=== PATIENT | female | born 1950 | race Two or more races ===

== ENCOUNTER 2018-03-28 11:50 | Outpatient (CLI) | payer OTHER | END 2018-03-28 16:41 | disposition home or self-care (01) | LOC: MRI 11:50 | DX: M54.5 Low back pain (principal); M41.85 Other forms of scoliosis, thoracolumbar region; M54.2 Cervicalgia | CPT/HCPCS: 72141; 72146; 72148 ==

== ENCOUNTER 2018-04-06 08:52 | Outpatient (CLI) | payer OTHER | END 2018-04-06 08:59 | disposition home or self-care (01) | LOC: TOM 08:52 | DX: K63.5 Polyp of colon (principal); N20.0 Calculus of kidney ==

== ENCOUNTER 2018-04-12 09:08 | Outpatient (CLI) | payer OTHER | END 2018-04-12 09:23 | disposition home or self-care (01) | LOC: NUCLEAR 09:08 | DX: M24.811 Other specific joint derangements of right shoulder, not elsewhere classified (principal); M24.812 Other specific joint derangements of left shoulder, not elsewhere classified | CPT/HCPCS: 78315; A9503 ==

== ENCOUNTER 2018-04-27 11:36 | Outpatient (CLI) | payer OTHER | END 2018-04-27 12:00 | disposition home or self-care (01) | LOC: NUCLEAR 11:36 | DX: M41.9 Scoliosis, unspecified (principal) | CPT/HCPCS: 78815; A9552 ==

== ENCOUNTER 2018-05-10 14:05 | Outpatient (CLI) | payer OTHER | END 2018-05-10 14:14 | disposition home or self-care (01) | LOC: LAB 14:05 | DX: C90.00 Multiple myeloma not having achieved remission (principal); D47.2 Monoclonal gammopathy; D50.8 Other iron deficiency anemias; I10 Essential (primary) hypertension; K90.89 Other intestinal malabsorption; R97.0 Elevated carcinoembryonic antigen [CEA]; R97.8 Other abnormal tumor markers ==

== ENCOUNTER 2018-09-11 16:20 | Outpatient (CLI) | payer OTHER | END 2018-09-12 12:26 | disposition home or self-care (01) | LOC: RAD 16:20 | DX: C90.00 Multiple myeloma not having achieved remission (principal) ==

== ENCOUNTER → 2018-09-13 09:35 | Outpatient (CLI) | payer OTHER | END | disposition home or self-care (01) | LOC: LAB 09:35 | DX: D50.8 Other iron deficiency anemias (principal); D51.8 Other vitamin B12 deficiency anemias; C90.00 Multiple myeloma not having achieved remission; I10 Essential (primary) hypertension ==